=== PATIENT | male | born 1970 | race Caucasian/White ===

== ENCOUNTER 2016-07-15 12:06 | Inpatient (IN) | payer SELFPAY ==
--- NOTE | ~2016-07-15 | EGD ---
EGD REPORT [facility] [address] [address] NAME: ALEENA TERESA : 66 STATUS : ADM IN PAT#: [id number] AGE: 46 ADM/REG DATE : 07/15/16 MR#: [id number] REPORT SERV DATE: 07/16/16 DICTATED BY: ARIANA LOWERY DATE: 07/16/16 REPORT STATUS : Draft TRANSCRIBED BY: [email or web address] DATE: 07/16/16 Pulmonology Patient Name: Aleena Teresa. Procedure Date: 07/16/2016 12:17 PM Date of : 1970 Attending MD: ALY LOWERY MD Procedure Date No Time: 07/16/2016 Procedure: FLEXIBLE RIGID EBUS BRONCHOSCOPY Indications: RLL suspected tumor Providers: ALY LOWERY MD Referring MD: MARTIN LEWIS JR., MD Medicines: Lidocaine 2% 20 mL Complications: No immediate complications Procedure: Pre-Anesthesia Assessment: - A History and Physical has been performed. Patient meds and allergies have been reviewed. The risks and benefits of the procedure and the sedation options and risks were discussed with the patient. All questions were answered and informed consent was obtained. Patient identification and proposed procedure were verified prior to the procedure by the physician and the nurse in the pre-procedure area in the procedure room. Mental Status Examination: normal. Airway Examination: normal oropharyngeal airway. Respiratory Examination: poor air movement and expiratory wheezes. CV Examination: normal and RRR, no murmurs, no S3 or S4. ASA Grade Assessment: IV - A patient with severe systemic disease that is a constant threat to life. After reviewing the risks and benefits, the patient was deemed in satisfactory condition to undergo the procedure. The anesthesia plan was to use general anesthesia. Immediately prior to administration of medications, the patient was re-assessed for adequacy to receive sedatives. The heart rate, respiratory rate, oxygen saturations, blood pressure, adequacy of pulmonary ventilation, and response to care were monitored throughout the procedure. The physical status of the patient was re-assessed after the procedure. After obtaining informed consent, the BF [id number] was introduced through the mouth, via the endotracheal tube (the patient was intubated for the procedure) and advanced to the tracheobronchial tree. The Bronchoscope was introduced through the mouth, via the endotracheal tube (the patient was intubated for the procedure) and advanced to the tracheobronchial tree. The procedure was accomplished without difficulty. The patient EGD REPORT [address] [address] NAME: ALEENA TERESA : [birth year] STATUS : ADM IN PAT#: [id number] AGE: 46 ADM/REG DATE : 07/15/16 MR#: [id number] REPORT SERV DATE: 07/16/16 DICTATED BY: ARIANA LOWERY DATE: 07/16/16 REPORT STATUS : Draft TRANSCRIBED BY: [email or web address] DATE: 07/16/16 tolerated the procedure well. Findings: The endotracheal tube is in good position. The elyssa is splayed. The tracheobronchial tree was examined to at least the first subsegmental level. The RLL was puckered with a visible foreign body and surrounding edematous tissue and focal granulation tissue along the posterior membrane. The carinas are splayed. EBUS TBNA of lymph node level 11L x 4 passes for cytology EBUS TBNA of lymph node level 4L x 4 passes for cytology EBUS TBNA of lymph node level 7 x 4 passes for cytology EBUS TBNA of lymph node level 4R x 4 passes for cytology EBUS TBNA of lymph node level 11R x 4 passes for cytology Using a Rigid Dumon 12 mm bronchoscope patient was reintubated in the usual atraumatic fashion and selectively advanced into the LADI. Using a bola balloon numbers 4 and 6, we dislodged the foreign body and performed balloon bronchoplasty. Using rigid white handle forceps and swing jaws, I successfully removed the foreign body piecemeal. Bronchoalveolar lavage was performed in the right lower lobe of the lung and sent for cell count, cytology, bacterial culture, viral smears \T\ culture, and fungal and AFB analysis. 60 mL of fluid were instilled. 30 mL were returned. Cellular return. Brushings were obtained in the right lower lobe of the lung and sent for routine cytology. One sample was obtained. Endobronchial biopsies were performed in the bronchus intermedius of the bronchial granulation tissue and foreign body using a forceps and sent for histopathology examination. Four samples were obtained. The FiO2 was then lowered to less than 40% and argon plasma coagulation therapy (0.8 L/min, 15 Rosa) for destruction of granulation tissue. Patient's foreign body was completely extracted. Pictures were taken at the close of the case. Impression: RBI foreign body was removed. EBUS TBNA of mediastinal lymph nodes demonstrated no evidence of maligancy. The clinical presentation is more consistent with foreign body obstruction of the RLL with post obstructive pneumonia and reactive adenopathy. Cultures were performed. Recommendation: - Await test results. - Chest X-ray. Attending Participation: I personally performed the entire procedure. ALY LOWERY MD 07/16/2016 2:34 PM This report has been signed electronically. EGD REPORT [address] [place]. [address] NAME: ALEENA TERESA : [birth year] STATUS : ADM IN [facility]#: [id number] AGE: 46 ADM/REG DATE : 07/15/16 MR#: [id number] REPORT SERV DATE: 07/16/16 DICTATED BY: ARIANA LOWERY DATE: 07/16/16 REPORT STATUS : Draft TRANSCRIBED BY: [email or web address] DATE: 07/16/16 Number of Addenda: 0 Note Initiated On: 07/16/2016 12:17 PM [address] [place] [address]
--- NOTE | ~2016-07-15 | CN ---
Consultation Report [facility] [address] [place]. [address] NAME: ALEENA TERESA : [birth year] STATUS : ADM IN PAT#: [id number] AGE: 46 ADM/REG DATE : 07/15/16 MR#: [id number] REPORT SERV DATE: 07/17/16 DICTATED BY: LEONARD LOWERY DATE: 07/17/16 REPORT STATUS : Draft TRANSCRIBED BY: [employer] DATE: 07/17/16 CONSULTATION DATE OF CONSULTATION: 07/16/[address] Davidson: Thank you for requesting my opinion regarding potential flex rigid bronchoscopy, regarding Mr. Aleena Treesa's mediastinal lymphadenopathy, and right lower lobe lung collapse, and possible airway obstruction. Mr. Aleena Teresa is an extremely pleasant 46-year-old gentleman, with significant past medical history of tobacco abuse, who recently presented to [facility]. He was recently seen and evaluated by his primary intellectual property legal assistant, Dr. Adorno. Dr. Adorno performed a bronchoscopy, which demonstrated a friable polypoid lesion in the right bronchus intermedius. This lesion was biopsied and came back with acute inflammation. The patient was then sent to Dr. Davidson for further evaluation and possible surgical biopsy. Dr. Davidson requested that I evaluate him from an endoscopic perspective for EBUS and potential stenting of the right bronchus intermedius. The patient states that he was recently been treated for pneumonia with antibiotic with no significant improvement. He developed worsening hypoxemia and presented to Dr. Davidson's office with sats in the 70s, and was subsequently admitted to [facility]. He states that his shortness of breath is ktvdrzwo-sy-bjywke in nature, well localized to the chest, nonradiating with no significant alleviating or exacerbating factors. REVIEW OF SYSTEMS: A detailed 14-point review of systems was completed. Pertinent positives and negatives are listed above. PAST MEDICAL HISTORY: Tobacco abuse. PAST SURGICAL HISTORY: 1. Reconstruction to the right ankle area approximately 20 years ago. 2. Bronchoscopy performed by Dr. Adorno. ALLERGIES: NO KNOWN DRUG ALLERGIES. HOME MEDICATIONS: None. SOCIAL HISTORY: The patient smokes approximately a pack per day. He denies any significant alcohol or illicit drug abuse. FAMILY HISTORY: Noncontributory. PHYSICAL EXAMINATION: VITAL SIGNS: Reviewed and located in the paper chart. GENERAL: In no acute distress. Able Consultation Report [facility] [address] [place]. [address] NAME: ALEENA TERESA : [birth year] STATUS : ADM IN PAT#: [id number] AGE: 46 ADM/REG DATE : 07/15/16 MR#: [id number] REPORT SERV DATE: 07/17/16 DICTATED BY: LEONARD LOWERY DATE: 07/17/16 REPORT STATUS : Draft TRANSCRIBED BY: [employer] DATE: 07/17/16 to communicate in full paragraphs at a time. HEENT: Normocephalic and atraumatic. Pupils are equal, round, and reactive to light and accommodation. Posterior oropharynx is clear. High-arch palate. NECK: Thick neck. No tonsillar exudates noted. CARDIOVASCULAR: Regular rate and rhythm. S1 and S2 present. LUNGS: Diminished breath sounds bilaterally. Prominent wheezes noted on the left, as well as the right lung, slight increased work of breathing especially during a lengthy conversation. ABDOMEN: Nontender, nondistended, and soft. Positive bowel sounds. EXTREMITIES: No clubbing, cyanosis, or edema. SKIN: No new rashes, lesions, or ulcers. PSYCHIATRIC: Alert and oriented x3. Appropriate mood and affect. Appropriate insight and judgment. NEUROLOGIC: 5/5 strength in upper and lower extremities. Cranial nerves 2 through 12 are intact. Gait not tested. DTRs not performed. LABORATORY AND DIAGNOSTIC DATA: white count of 11, hemoglobin of 12. Normal coagulation studies. Chemistries demonstrate a normal renal function. Calcium of 8.2, which is slightly low. CTA of the chest on 07/16/2016 was personally reviewed by me and I agree with the following interpretation: 1. Right lower lobe consolidation indicating probable pneumonia, this could obscure visualization of underlying abnormality with followup confirmation and clearance. 2. Right pleural fluid. 3. COPD. 4. Minimal infiltrates in the lingula and left lower lobe. Likely inflammatory granulomatous, followup CT is recommended. 5. Bilateral hilar and mediastinal lymphadenopathy. 6. Ascending aortic aneurysm. 7. No evidence of pulmonary emboli. ASSESSMENT AND PLAN: Mr. Teresa is extremely pleasant 46-year-old gentleman, with a significant past medical history of heavy tobacco abuse, who presents to [facility] with worsening shortness of breath, dyspnea on exertion, and hypoxemia. The patient underwent a recent bronchoscopy by Dr. Adorno that demonstrated a friable polypoid lesion in the right lower lobe. Biopsies demonstrated acute inflammation and he was sent to Dr. Davidson for possible surgical biopsy. After careful review of the CT scan with Dr. Davidson, we agreed to proceed forward with EBUS and possible flex rigid bronchoscopy for airway stenting. I did discuss in detail potential options other than bronchoscopy. The patient is aware that the procedure is associated with potential life-threatening risks, including lung collapse, respiratory failure, and even . With regard to rigid bronchoscopy, the patient is aware that the procedure is associated with potential injury to the mouth, lips, Consultation Report [place] [address] [facility] [place]. [address] NAME: ALEENA TERESA : [birth year] STATUS : ADM IN [facility]#: [id number] AGE: 46 ADM/REG DATE : 07/15/16 MR#: [id number] REPORT SERV DATE: 07/17/16 DICTATED BY: LEONARD LOWERY DATE: 07/17/16 REPORT STATUS : Draft TRANSCRIBED BY: [employer] DATE: 07/17/16 teeth, gums, posterior oropharynx, injury to the trachea, airway tear, and airway fire. The patient is also aware that if a stent is placed, he will require bronchodilator therapy. The patient is also aware that potential stent placement is associated with risks including increased risk of lower respiratory tract infections, migration, and fracturing of the stent. RECOMMENDATIONS: A summary of my recommendations are as follows: 1. Expand antibiotic coverage to include Zosyn and continue vancomycin. 2. Proceed with EBUS and flexible rigid bronchoscopy with possible airway stenting. 3. Further recommendations postprocedure. 4. If the patient's pleural effusion worsens, he may be amenable to thoracentesis. There appears to be early loculation especially in the medial aspect at the level of the aortic arch. Thank you for allowing me to participate in Mr. Aleena Teresa's care. MADDY/CARIDADL Leonard Lowery M.D. / [id number] CC: Marcell Davidson Jr., M.D.
--- NOTE | ~2016-07-15 | DS ---
Discharge Summary [facility] [address] [place]. [address] NAME: ALEENA NAPIER : 66 STATUS : DIS IN PAT#: [id number] AGE: 46 ADM/REG DATE : 07/15/16 MR#: [id number] REPORT SERV DATE: 07/29/16 DICTATED BY: MARTIN DAVIDSON JR. DATE: 07/28/16 REPORT STATUS : Draft TRANSCRIBED BY: MODL DATE: 07/28/16 Data Collection from hospitalization DISCHARGE DIAGNOSES: ( ) ( ) ( ) CONSULTATION: Dr. Leonard Bermudez. PROCEDURES: 1. Flexible rigid EBUS bronchoscopy, 07/16/2016. 2. CTA of the chest, 07/16/2016. PATHOLOGY: Lung, right lower lobe brushings for cytology (smear and thin prep)-negative for atypical or malignant cells. Bronchial and inflammatory cells, level 11 L lymph node, transbronchial needle aspiration (smears, cell block)-negative for atypical or malignant cells. Lymphoid sample present. Level 4 L lymph node, transbronchial needle aspiration (smears, cell block)-negative for atypical or malignant cells. Insufficient lymphoid sample level 7 lymph node, transbronchial needle aspiration (smears and cell block)-negative for atypical or malignant cells. Lymphoid sample present, level 4R lymph node, transbronchial needle aspiration (smears and cell block)-negative for atypical or malignant cells. Insufficient lymphoid sample, level 11R lymph node, transbronchial needle aspiration (smears, cell block)-negative for atypical or malignant cells. Scant lymphoid sample, lung, right lower lobe BAL for cytology (thin prep)-negative for atypical or malignant cells. Moderate acute inflammation, endobronchial foreign body removal-vegetable matter consistent with aspiration. DISCHARGE MEDICATIONS: Proventil one puff via inhaler every four hours as needed, amoxicillin 875 mg twice a day, Percocet 5/325 one to two tablets every four hours as needed, MiraLAX one packet daily. CONDITION AT DISCHARGE: Stable. DISPOSITION: The patient was discharged home on a regular diet with activities as instructed. He would follow up with me on 08/04/2016. HOSPITAL COURSE: This is a 46-year-old man, who presented to the hospital with respiratory failure and hypoxia. He does have a past history of tobacco use. He had recently presented to [facility]. He had recently been seen by his primary classroom instructional aide, Dr. Adorno, who had performed a bronchoscopy which demonstrated a friable polypoid lesion in the right bronchus intermedius. This lesion was biopsied and returned as showing acute inflammation. He was admitted to the hospital at this time for further evaluation and treatment. Upon admission, he was seen by Dr. Leonard Bermudez, regarding endoscopic perspective for EBUS and potential stenting of the right bronchus intermedius. The patient said he had recently been treated for pneumonia with antibiotics and no significant improvement. He had developed worsening hypoxemia and had presented to the office with saturations in the 70s. Discharge Summary [address] [address] NAME: ALENEA NAPIER : 66 STATUS : DIS IN PAT#: [id number] AGE: 46 ADM/REG DATE : 07/15/16 MR#: [id number] REPORT SERV DATE: 07/29/16 DICTATED BY: MARTIN DAVIDSON JR. DATE: 07/28/16 REPORT STATUS : Draft TRANSCRIBED BY: GROVER DATE: 07/28/16 He states that his shortness of breath was moderate to severe in nature and well localized to the chest. There were no significant alleviating or exacerbating factors. A CTA of the chest was performed, which revealed right lower lobe consolidation, indicating probable pneumonia. There was right pleural fluid. He was felt to have COPD. There were minimal nodules in the lingula and left lower lobe, likely inflammatory or granulomatous. He had bilateral hilar and mediastinal adenopathy. He has an ascending aortic aneurysm. It was felt that the patient would need to undergo flexible rigid EBUS bronchoscopy. The patient was taken to the operating room, where he underwent the above-mentioned procedure by Dr. Leonard Bermudez. He tolerated this well and there were no complications. On the , he was still desaturated easily with activity. He had decreased breath sounds in the right lung bases. His abdomen was soft and nontender. Chest x-ray showed small basilar pleural effusion. Respiratory treatment continued with EzPAP. Antibiotics were continued. Discharge planning was performed. On 07/18/2016, he was breathing easily. He had decreased breath sounds in the right base. He was tolerating oral intake well. EBUS pathology was negative. Right lower lobe cytology was negative. Antibiotics would be continued for a few weeks. O2 was being weaned. We encouraged him to increase his ambulation. Discharge instructions were given. Due to his improved and stable condition, he was discharged home with the above-stated instructions. Information collected by: Mignon Mes[place] I submit the above information as my discharge summary. NOE/GROVER Martin Davidson Jr., M.D. / [id number] CC: Martin Davidson Jr., M.D.
[2016-07-15 14:06] LABS: BASOPHILS 0.3 %; BASOPHILS ABSOLUTE 0.03 10/3/uL (0.0-0.16); EOSINOPHILS 1.1 %; EOSINOPHILS ABSOLUTE 0.12 10/3/uL (0.0-0.53); HEMATOCRIT 40.8 % (40.0-51.0); HEMOGLOBIN 12.7 g/dL (13.6-17.8); IMMATURE GRANULOCYTES 0.4 %; IMMATURE GRANULOCYTES ABSOLUTE 0.04 10/3/uL (0.0-0.11); LYMPHOCYTES 21.4 %; LYMPHOCYTES ABSOLUTE 2.36 10/3/uL (0.67-4.30); MANUAL DIFF NO %; MEAN CORPUS HGB CONC 31.1 g/dL (32.0-36.0); MEAN CORPUSCULAR HEMOGLOB 27.7 pg (26.0-34.0); MEAN CORPUSCULAR VOLUME 88.9 fL (80-100); MEAN PLATELET VOLUME 9.1 fL (9.2-13.0); MONOCYTES 7.2 %; MONOCYTES ABSOLUTE 0.79 10/3/uL (0.21-1.20); NEUTROPHILS 69.6 %; NEUTROPHILS ABSOLUTE 7.67 10/3/uL (2.02-8.40); PLATELET COUNT 391 10/3/uL (150-400); RBC DISTRIBUTION WIDTH 14.7 % (12.0-16.0); RED CELL COUNT 4.59 10/6/uL (4.7-6.1)
[2016-07-15 14:11] LABS: INTERNATIONAL NORMAL RATI 1.1 UNITS (-); PROTIME (NOT ORD) 14.3 SEC (12.0-14.5)
[2016-07-15] MEDS ORDERED: *DENIES (14:14)
[2016-07-15 14:21] LABS: A/G RATIO 0.6 (0.7-1.9); ALBUMIN 2.6 G/DL (3.5-5.0); ALKALINE PHOSPHATASE 111 U/L (45-117); BUN (BLOOD UREA NITROGEN) 15 MG/DL (6-23); CALCIUM, SERUM 8.2 MG/DL (8.5-10.4); CHLORIDE, SERUM 96 MMOL/L (96-112); CO2 (CARBON DIOXIDE) 34 MMOL/L (24-34); CREATININE 1.17 MG/DL (0.70-1.30); GFR AFRICAN AMERICAN 85 ML/MIN (>=60); GFR NON AFRICAN AMERICAN 73 ML/MIN (>=60); GLOBULIN 4.7 G/DL (2.5-4.1); GLUCOSE, SERUM 102 MG/DL (60-99); POTASSIUM, SERUM 5.2 MMOL/L (3.5-5.3); SGOT(AST) 26 U/L (5-40); SGPT(ALT) 19 U/L (5-65); SODIUM, SERUM 135 MMOL/L (135-148); TOTAL BILIRUBIN 0.7 MG/DL (0-1.2); TOTAL PROTEIN 7.3 G/DL (6.0-8.5)
[2016-07-16 15:16] LABS: BE (BASE EXCESS) 5.1 MEQ/L (0 +/- 2.5); CARBOXYHEMOGLOBIN 0.1 % (0-3); HCO3 (ACTUAL BICARBONATE) 31.6 MEQ/L (23-27); HEMOBLOGIN CONTENT 12.2 G/DL (14-18); INSTRUMENT SERIAL # 11843; METHEMOGLOBIN 0.5 % (0-3); O2 CONTENT 17.5 VOL% (18-24); OPERATOR ID 19104; PCO2 (CO2 TENSION) 55 MMHG (35-45); PO2 (O2 TENSION) 239 MMHG (79-93); SAMPLE Arterial; pH 7.38 (7.37-7.43)
[2016-07-16 15:17] LABS: MODE SIMV; TIDAL VOLUME 750 ML
[2016-07-16 17:29] LABS: BD FL LYMPH (NOT ORD) 3 %; BF BASO (NOT OF) 0 %; BF LARGE MONONUCLEAR 17 %; BF TOTAL CELL CT (NOT ORD 3512 /MM3; BODY FLUID EOS (NOT ORD) 0 %; BODY FLUID SEG (NOT ORD) 80 %
[2016-07-16 17:30] LABS: BD FL SOURCE (NOT ORD) BAL-RLL; BODY FLUID RBC (NOT ORD) 73000 /MM3
[2016-07-17 07:04] LABS: BUN (BLOOD UREA NITROGEN) 25 MG/DL (6-23); CALCIUM, SERUM 8.3 MG/DL (8.5-10.4); CHLORIDE, SERUM 98 MMOL/L (96-112); CO2 (CARBON DIOXIDE) 34 MMOL/L (24-34); CREATININE 1.56 MG/DL (0.70-1.30); GFR AFRICAN AMERICAN 60 ML/MIN (>=60); GFR NON AFRICAN AMERICAN 52 ML/MIN (>=60); GLUCOSE, SERUM 150 MG/DL (60-99); POTASSIUM, SERUM 5.1 MMOL/L (3.5-5.3); SODIUM, SERUM 139 MMOL/L (135-148); VANCOMYCIN TROUGH 21.3 MCG/ML (10.0-20.0)
[2016-07-18 05:06] LABS: BUN (BLOOD UREA NITROGEN) 23 MG/DL (6-23); CALCIUM, SERUM 8.3 MG/DL (8.5-10.4); CHLORIDE, SERUM 101 MMOL/L (96-112); CO2 (CARBON DIOXIDE) 32 MMOL/L (24-34); CREATININE 1.59 MG/DL (0.70-1.30); GFR AFRICAN AMERICAN 59 ML/MIN (>=60); GFR NON AFRICAN AMERICAN 51 ML/MIN (>=60); POTASSIUM, SERUM 4.9 MMOL/L (3.5-5.3); SODIUM, SERUM 139 MMOL/L (135-148)
[2016-07-18 05:11] LABS: GLUCOSE, SERUM 101 MG/DL (60-99)
[2016-07-18] MEDS ORDERED: PCET PO (15:18)
[2016-07-18] MEDS ORDERED: PROVHFA INH (15:18)
[2016-07-18] MEDS ORDERED: AMOXIL875 MG PO (15:22)
== END 2016-07-18 16:52 | disposition home or self-care (01) | DRG 166 ==
LOC: 5NO 12:06 → SDC/OF 07-18 11:26 → 5NO 07-18 11:27
PROVIDERS: Internal Medicine; Nurse Practitioner Acute Care; Thoracic Surgery (Cardiothoracic Vascular Surgery)
PROC: 07B74ZX Excision of Thorax Lymphatic, Percutaneous Endoscopic Approach, Diagnostic (ICD-10-PCS; principal; 2016-07-16 12:51)
PROC: 0BB78ZX Excision of Left Main Bronchus, Via Natural or Artificial Opening Endoscopic, Diagnostic (ICD-10-PCS; 2016-07-16 14:00)
PROC: 0BB38ZX Excision of Right Main Bronchus, Via Natural or Artificial Opening Endoscopic, Diagnostic (ICD-10-PCS; 2016-07-16 14:00)
DX: T17.528A Food in bronchus causing other injury, initial encounter (principal); J18.9 Pneumonia, unspecified organism; J90 Pleural effusion, not elsewhere classified; I71.2 Thoracic aortic aneurysm, without rupture; J44.9 Chronic obstructive pulmonary disease, unspecified; R59.1 Generalized enlarged lymph nodes; Z87.891 Personal history of nicotine dependence
CPT/HCPCS: 31720; 71010; 71020; 71275; 80048; 80053; 80202; 82805; 85025; 85610; 85730; 87015; 87070; 87102; 87116; 87205; 88112; 88172; 88173; 88305; 88333; 89051; 93005; 94002; 94640; 94660; 94770; A9270-GY; C1725; C1757; J0330; J1940; J2250; J2405; J2543; J2710; J3370; Q9967